=== PATIENT | female | born 1950 | race Native Hawaiian/Other Pacific Islander ===

== ENCOUNTER 2017-08-09 09:40 | Inpatient (IN) | payer BC, MEDICARE ==
[2017-08-09] MEDS ORDERED: Sodium Chloride 0.9% 1,000 ML IV ONE (10:27)
--- NOTE | 2017-08-09 10:35 | C.PDOC ---
History Of Present Illness 66 year old female referred to the ED by Dr. Rosas for admission for abscess I&D. Patient reports abscess to the left arm, increasing in size over the past week. Was taking Keflex but 2 days ago was advised by Alison to stop. Patient has been NPO since last night. No fever or discharge. Time Seen by Provider: 08/09/17 10:08 Chief Complaint (Nursing): Abnormal Skin Integrity History Per: Patient History/Exam Limitations: no limitations Onset/Duration Of Symptoms: Days Current Symptoms Are (Timing): Still Present Past Medical History Reviewed: Historical Data, Nursing Documentation, Vital Signs Vital Signs: Last Vital Signs Temp 98.2 F 08/11/17 04:38 Pulse 64 08/11/17 04:38 Resp 20 08/11/17 04:38 BP 109/63 08/11/17 04:38 Pulse Ox 95 08/11/17 04:38 - Medical History PMH: Diabetes Family History: States: No Known Family Hx - Social History Hx Tobacco Use: No Hx Alcohol Use: No Hx Substance Use: No - Immunization History Hx Tetanus Toxoid Vaccination: No Hx Influenza Vaccination: No Hx Pneumococcal Vaccination: No Review Of Systems Constitutional: Negative for: Fever, Chills Skin: Positive for: Other (abscess to left arm) Physical Exam - Physical Exam Appears: No Acute Distress Skin: Warm, Dry, Other (Abscess to left arm with surrounding erythema, no discharge) Head: Atraumatic, Normacephalic Eye(s): bilateral: Normal Inspection, PERRL, EOMI Oral Mucosa: Moist Neck: Normal, Normal ROM Chest: Symmetrical Cardiovascular: Rhythm Regular, No Murmur Respiratory: Normal Breath Sounds, No Rales, No Rhonchi, No Wheezing Gastrointestinal/Abdominal: Soft, No Tenderness, No Distention Extremity: Bilateral: Atraumatic, Normal ROM Pulses: Left Radial: Normal, Right Radial: Normal Neurological/Psych: Oriented x3, Normal Speech Gait: Steady ED Course And Treatment - Laboratory Results Result Diagrams: 08/10/17 07:32 08/11/17 06:05 ECG: Interpreted By Me, Viewed By Me ECG Rhythm: Sinus Rhythm ECG Interpretation: Normal Rate From EC O2 Sat by Pulse Oximetry: 98 (RA) Pulse Ox Interpretation: Normal Medical Decision Making Medical Decision Making: Initial Impression: Abscess to left arm Case discussed with Dr. Rosas, patient will be admitted to the OR for abscess I&D Progress: Ordered blood work and EKG. Patient started on IV fluids and Ancef Disposition Counseled Patient/Family Regarding: Studies Performed, Diagnosis - Disposition Disposition: HOSPITALIZED Disposition Time: 11:30 Condition: STABLE - POA Present On Arrival: Poor Glycemic Control - Clinical Impression Clinical Impression: Abscess - Scribe Statement The provider has reviewed the documentation as recorded by the Maria Luisa Hermosillo Provider Attestation: All medical record entries made by the Maria Luisa were at my direction and personally dictated by me. I have reviewed the chart and agree that the record accurately reflects my personal performance of the history, physical exam, medical decision making, and the department course for this patient. I have also personally directed, reviewed, and agree with the discharge instructions and disposition.
[2017-08-09] MEDS ORDERED: ceFAZolin 1 gm FROZEN Premix 1 GM/50 ML ML IVPB ONE (10:49)
[2017-08-09 11:11] LABS: BASO # 0.1 K/uL (0.0-0.2); BASO % 0.9 % (0.0-2.0); EOS # 0.2 K/uL (0.0-0.7); EOS % 2.9 % (0.0-4.0); HEMOGLOBIN 15.1 g/dL (11.0-16.0); LYMPH # 1.9 K/uL (1.0-4.3); LYMPH % 29.4 % (20.0-40.0); MEAN CELL VOLUME 93.7 fL (81.0-99.0); MEAN CORPUSCULAR HEMOGLOBIN 32.4 pg (27.0-31.0); MEAN CORPUSCULAR HGB CONC 34.6 g/dL (33.0-37.0); MEAN PLATELET VOLUME 9.7 fL (7.2-11.7); MONO # 0.4 K/uL (0.0-0.8); MONO % 5.9 % (0.0-10.0); NEUT # 3.9 K/uL (1.8-7.0); NEUT % 60.9 % (50.0-75.0); NRBC % 0.1 % (0.0-2.0); RBC 4.66 Mil/uL (3.80-5.20); RED CELL DISTRIBUTION WIDTH 12.9 % (11.5-14.5); WHITE BLOOD COUNT 6.4 K/uL (4.8-10.8)
[2017-08-09 11:12] LABS: SQUAMOUS EPITHIAL < 1 /hpf (0-5); URINE BILIRUBIN NEGATIVE (NEGATIVE); URINE BLOOD NEGATIVE (NEGATIVE); URINE CLARITY Clear (Clear); URINE COLOR Yellow (YELLOW); URINE GLUCOSE (UA) NORMAL (Normal); URINE LEUKOCYTE ESTERASE NEG Leu/uL (Negative); URINE PROTEIN NEGATIVE (NEGATIVE); URINE UROBILINOGEN NORMAL mg/dL (0.2-1.0)
[2017-08-09 11:19] LABS: INR 0.9; PROTHROMBIN TIME 10.4 SECONDS (9.7-12.2)
[2017-08-09 11:26] LABS: ALB/GLOB RATIO 1.1 (1.0-2.1); ALBUMIN 4.5 g/dL (3.5-5.0); ALT/SGPT 46 U/L (9-52); AST/SGOT 39 U/L (14-36); BLOOD UREA NITROGEN 11 mg/dL (7-17); CALCIUM 9.6 mg/dl (8.6-10.4); GFR AFRICAN-AMERICAN > 60; GFR NON-AFRICAN AMERICAN > 60
[2017-08-09] MEDS ORDERED: ceFAZolin 1 gm in NS 1 GM/100 ML BAG IVPB ONE (15:58)
[2017-08-09] MEDS ORDERED: Lidocaine Hydrochloride 5 ML INJ ONE (15:58)
[2017-08-09] MEDS ORDERED: Bupivacaine HCl 0.25% PF (30 ml) Inj ONE (15:59)
[2017-08-09] MEDS ORDERED: Propofol 10 mg/ml Inj (20 ML) ONE (16:04)
[2017-08-09] MEDS ORDERED: Oxycodone/Acetaminophen 5/325 mg Tab PO PRN (16:45)
[2017-08-09] MEDS ORDERED: HYDROmorphone 0.5 mg/0.5 ml ISec IVP PRN (16:47)
--- NOTE | 2017-08-09 19:03 | CP.PCM.HP ---
History of Present Illness - History of Present Illness History of Present Illness: 66 y,o, male with PMH NIDDM2 Cholesterol admitted for ID left arm and IV antibiotic Patient reports boil in left arm for more than a week, she thinks its drying , she is preparing to go to [facility] and stopped by in the clinic, patient was told she has abscess and may need I&D, patient started on antibiotic and immediately saw consulted a surgeon, and went for I& D today- and needed IV antibiotic Patient isaac fever, she repports left arm pain where the boil is, but is tolerable , she is able to use her extremeties. PMH NIDDM2 Cholesterol Meds statin Acei Metformin Surgery cholecystectomy Present on Admission - Present on Admission Any Indicators Present on Admission: No History of DVT/PE: No History of Uncontrolled Diabetes: No Urinary Catheter: No Decubitus Ulcer Present: No Review of Systems - Constitutional Constitutional: absent: Anorexia, Chills, Fatigue, Lethargy - EENT Eyes: absent: Other Visual Disturbances Nose/Mouth/Throat: absent: Epistaxis, Nasal Congestion, Sore Throat - Breasts Breasts: absent: Mass, Pain - Cardiovascular Cardiovascular: absent: Chest Pain, Dyspnea, Orthopnea, Rapid Heart Rate, Syncope - Respiratory Respiratory: absent: Dyspnea, Wheezing - Gastrointestinal Gastrointestinal: absent: Abdominal Pain, Diarrhea, Vomiting - Genitourinary Genitourinary: absent: Difficulty Urinating, Urinary Frequency - Menstruation Menstruation: Post Menopausal - Musculoskeletal Musculoskeletal: Other. absent: Abnormal Gait, Deformity, Limited Range of Motion - Integumentary Integumentary: Other (boil with surrounding redness left arm- went for I&D) - Psychiatric Psychiatric: absent: Abnormal Sleep Pattern, Behavioral Changes, Visual Hallucinations - Endocrine Endocrine: absent: Palpitations, Polydipsia, Polyphagia - Hematologic/Lymphatic Hematologic: absent: Easy Bleeding, Easy Bruising Past Patient History - Past Medical History & Family History Past Medical History?: Yes - Past Social History Smoking Status: Never Smoked Chewing Tobacco Use: No Cigar Use: No Alcohol: Social Home Situation {Lives}: With Family - CARDIAC Hx Cardiac Disorders: No - ENDOCRINE/METABOLIC Hx Endocrine Disorders: Yes Hx Diabetes Mellitus Type 2: Yes - PSYCHIATRIC Hx Substance Use: No - ANESTHESIA Hx Anesthesia: Yes Hx Anesthesia Reactions: No Hx Malignant Hyperthermia: No Meds Allergies/Adverse Reactions: Allergies Allergy/AdvReac Type Severity Reaction Status Date / Time No Known Allergies Allergy Verified 08/09/17 10:27 Physical Exam - Constitutional Appears: Non-toxic, No Acute Distress - Head Exam Head Exam: ATRAUMATIC, NORMOCEPHALIC - Eye Exam Eye Exam: Normal appearance - ENT Exam ENT Exam: Mucous Membranes Moist - Neck Exam Neck exam: Positive for: Full Rom. Negative for: Meningismus, Tenderness - Respiratory Exam Respiratory Exam: Clear to Auscultation Bilateral, NORMAL BREATHING PATTERN - Cardiovascular Exam Cardiovascular Exam: REGULAR RHYTHM - GI/Abdominal Exam GI & Abdominal Exam: Normal Bowel Sounds, Soft. absent: Tenderness - Extremities Exam Extremities exam: Positive for: full ROM (left arm bandaged post I&D today ), pedal pulses present. Negative for: joint swelling, pedal edema - Back Exam Back exam: FULL ROM. absent: rash noted - Neurological Exam Neurological exam: Alert, Normal Gait, Oriented x3 - Psychiatric Exam Psychiatric exam: Normal Affect, Normal Mood - Skin Skin Exam: Abrasion, Intact (other than the surgical site) Results - Vital Signs Recent Vital Signs: Last Vital Signs Temp 97.9 F 08/09/17 18:12 Pulse 77 08/09/17 18:12 Resp 20 08/09/17 18:12 BP 125/73 08/09/17 18:12 Pulse Ox 99 08/09/17 18:12 - Labs Result Diagrams: 08/10/17 07:32 08/10/17 07:32 Labs: Laboratory Results - last 24 hr 08/09/17 08/09/17 08/09/17 10:23 11:02 11:02 WBC 6.4 RBC 4.66 Hgb 15.1 Hct 43.7 MCV 93.7 MCH 32.4 H MCHC 34.6 RDW 12.9 Plt Count 220 MPV 9.7 Neut % (Auto) 60.9 Lymph % (Auto) 29.4 Jay % (Auto) 5.9 Eos % (Auto) 2.9 Baso % (Auto) 0.9 Neut # (Auto) 3.9 Lymph # (Auto) 1.9 Jay # (Auto) 0.4 Eos # (Auto) 0.2 Baso # (Auto) 0.1 PT 10.4 INR 0.9 APTT 36 H Sodium Potassium Chloride Carbon Dioxide Anion Gap BUN Creatinine Est GFR ( Amer) Est GFR (Non-Af Amer) POC Glucose (mg/dL) 100 Random Glucose Calcium Total Bilirubin AST ALT Alkaline Phosphatase Total Protein Albumin Globulin Albumin/Globulin Ratio Urine Color Urine Clarity Urine pH Ur Specific [place] Urine Protein Urine Glucose (UA) Urine Ketones Urine Blood Urine Nitrate Urine Bilirubin Urine Urobilinogen Ur Leukocyte Esterase Urine WBC (Auto) Urine RBC (Auto) Ur Squamous Epith Cells Blood Type Antibody Screen 08/09/17 08/09/17 08/09/17 11:02 11:02 11:02 WBC RBC Hgb Hct MCV MCH MCHC RDW Plt Count MPV Neut % (Auto) Lymph % (Auto) Jay % (Auto) Eos % (Auto) Baso % (Auto) Neut # (Auto) Lymph # (Auto) Jay # (Auto) Eos # (Auto) Baso # (Auto) PT INR APTT Sodium 141 Potassium 4.1 Chloride 102 Carbon Dioxide 26 Anion Gap 18 BUN 11 Creatinine 0.6 L Est GFR ( Amer) > 60 Est GFR (Non-Af Amer) > 60 POC Glucose (mg/dL) Random Glucose 106 H Calcium 9.6 Total Bilirubin 0.7 AST 39 H ALT 46 Alkaline Phosphatase 93 Total Protein 8.4 H Albumin 4.5 Globulin 3.9 Albumin/Globulin Ratio 1.1 Urine Color Yellow Urine Clarity Clear Urine pH 6.0 Ur Specific [place] 1.019 Urine Protein Negative Urine Glucose (UA) Normal Urine Ketones Negative Urine Blood Negative Urine Nitrate Negative Urine Bilirubin Negative Urine Urobilinogen Normal Ur Leukocyte Esterase Neg Urine WBC (Auto) 1 Urine RBC (Auto) 1 Ur Squamous Epith Cells < 1 Blood Type A POSITIVE Antibody Screen Negative 08/09/17 17:06 WBC RBC Hgb Hct MCV MCH MCHC RDW Plt Count MPV Neut % (Auto) Lymph % (Auto) Jay % (Auto) Eos % (Auto) Baso % (Auto) Neut # (Auto) Lymph # (Auto) Jay # (Auto) Eos # (Auto) Baso # (Auto) PT INR APTT Sodium Potassium Chloride Carbon Dioxide Anion Gap BUN Creatinine Est GFR ( Amer) Est GFR (Non-Af Amer) POC Glucose (mg/dL) 93 Random Glucose Calcium Total Bilirubin AST ALT Alkaline Phosphatase Total Protein Albumin Globulin Albumin/Globulin Ratio Urine Color Urine Clarity Urine pH Ur Specific [place] Urine Protein Urine Glucose (UA) Urine Ketones Urine Blood Urine Nitrate Urine Bilirubin Urine Urobilinogen Ur Leukocyte Esterase Urine WBC (Auto) Urine RBC (Auto) Ur Squamous Epith Cells Blood Type Antibody Screen Assessment & Plan - Assessment and Plan (Free Text) Assessment: Patient with NIDDM2 controlled, patient is NPO- for second debridement- will hold DM meds has no hypertension but is covered with ACEI due to DM- will hold for now Statin- will start when feeding Admitted for abscess ,left arm, I & D and antibiotic currently post op- post op pain, no fever n0 other complaints,on antibiotic, and will have another I&D in am currently stable - Date & Time Date: 08/09/17 Time: 21:00
[2017-08-09] MEDS: Dextrose 5%/0.45% NS 1,000 ML IV SCH (19:06)
[2017-08-09] MEDS: Vancomycin 1 gm/NS 200 ml 1 GM/200 ML BAG IVPB SCH (19:06)
--- NOTE | 2017-08-09 19:37 | CP.PCM.CON ---
History of Present Illness - History of Present Illness History of Present Illness: INFECTIOUS DISEASE CONSULT; HPI;66-year-old Citizen Of [place] female with history of NIDDM, hypercholesterolemia, was admitted 08/09/17 for left upper arm cellulitis and abscess for about a week for drainage of the abscess and IV antibiotics. Patient states this is her second episode of developing pustular rash and abscess. Patient was seen and started on antibiotics and I & D was done on 08/09/17. Patient was given a dose of Ancef 1 g and started on IV vancomycin by surgeon DR. ADAMSON in OR. INFECTIOUS DISEASE CONSULT REQUESTED BY DR. ADAMSON FOR iv ANTIBIOTICS. Patient reports pain in the left upper arm POSTOPERATIVE SITE but is able to tolerate with analgesics. Patient denies any fever but does complain of some chills and not feeling well. PATIENT DENIES ANY RECENT TRAVEL OR CONTACT WITH ANY SICK PATIENT OR PATIENT WITH AN ABNORMAL RASH. PMH; NIDDM, HYPERCHOLESTEROLEMIA. PSH; CHOLECYSTECTOMY. ALLERGIES; NKA FAMILY HISTORY; UNREMARKABLE. MEDS; REVIEWED. Review of Systems - Constitutional Constitutional: Chills, Fatigue. absent: Fever, Headache - EENT Eyes: absent: Change in Vision Nose/Mouth/Throat: absent: Mouth Lesions, Mouth Pain - Cardiovascular Cardiovascular: absent: Chest Pain, Dyspnea, Palpitations, Pedal Edema - Respiratory Respiratory: absent: Cough, Hemoptysis - Gastrointestinal Gastrointestinal: absent: Abdominal Pain, Diarrhea, Nausea, Vomiting - Genitourinary Genitourinary: As Per HPI. absent: Freq UTI - Reproductive: Female Reproductive:Female: Post Menopausal - Integumentary Integumentary: Skin Ulcer (LEFT UPPER ARM BOIL AND CELLULITIS S/P I AND D. POSTOPERATIVE ) - Neurological Neurological: absent: Headaches - Hematologic/Lymphatic Hematologic: As Per HPI. absent: Easy Bleeding, Easy Bruising, Lymphadenopathy Past Patient History - Past Medical History & Family History Past Medical History?: Yes - Past Social History Smoking Status: Never Smoked Chewing Tobacco Use: No Cigar Use: No Alcohol: Social Home Situation {Lives}: With Family - CARDIAC Hx Cardiac Disorders: No - ENDOCRINE/METABOLIC Hx Endocrine Disorders: Yes Hx Diabetes Mellitus Type 2: Yes - PSYCHIATRIC Hx Substance Use: No - ANESTHESIA Hx Anesthesia: Yes Hx Anesthesia Reactions: No Hx Malignant Hyperthermia: No Meds Allergies/Adverse Reactions: Allergies Allergy/AdvReac Type Severity Reaction Status Date / Time No Known Allergies Allergy Verified 08/09/17 10:27 - Medications Medications: Current Medications Docusate Sodium (Colace) 100 mg PO BID [facility] Sodium Chloride (Sodium Chloride 0.9%) 1,000 mls @ 100 mls/hr IV .Q10H ONE Stop: 08/09/17 20:26 Last Admin: 08/09/17 10:53 Dose: 100 mls/hr Dextrose/Sodium Chloride (Dextrose 5%/0.45% Ns 1000 Ml) 1,000 mls @ 80 mls/hr IV .[id number] [facility] Last Admin: 08/09/17 19:06 Dose: 80 mls/hr Vancomycin/Sodium Chloride (Vancomycin 1 Gm/Ns 200 Ml) 1 gm in 200 mls @ 166.6 mls/hr IVPB Q12H [facility] PRN Reason: Protocol Stop: 08/14/17 18:01 Last Admin: 08/09/17 19:06 Dose: 166.6 mls/hr Ondansetron HCl (Zofran Inj) 4 mg IVP Q6 PRN PRN Reason: Nausea/Vomiting Oxycodone/Acetaminophen (Percocet 5/325 Mg Tab) 2 tab PO Q4H PRN PRN Reason: pain Stop: 08/12/17 16:46 Pantoprazole Sodium (Protonix Inj) 40 mg IVP DAILY [facility] Rosuvastatin Calcium (Crestor) 10 mg PO HS [facility] Physical Exam - Head Exam Head Exam: NORMAL INSPECTION - Eye Exam Eye Exam: EOMI - ENT Exam ENT Exam: Normal Oropharynx - Neck Exam Neck exam: Positive for: Normal Inspection - Respiratory Exam Respiratory Exam: Clear to Auscultation Bilateral - Cardiovascular Exam Cardiovascular Exam: REGULAR RHYTHM, +S1, +S2. absent: Systolic Murmur - GI/Abdominal Exam GI & Abdominal Exam: Soft. absent: Mass, Organomegaly - Extremities Exam Extremities exam: Positive for: pedal pulses present. Negative for: calf tenderness, pedal edema - Neurological Exam Neurological exam: Alert, CN II-XII Intact, Oriented x3, Reflexes Normal - Psychiatric Exam Psychiatric exam: Normal Mood - Skin Skin Exam: Normal Color, Warm Results - Vital Signs Recent Vital Signs: Last Vital Signs Temp 97.9 F 08/09/17 18:12 Pulse 77 08/09/17 18:12 Resp 20 08/09/17 18:12 BP 125/73 08/09/17 18:12 Pulse Ox 99 08/09/17 18:12 - Labs Result Diagrams: 08/10/17 07:32 08/10/17 07:32 Labs: Laboratory Results - last 24 hr 08/09/17 08/09/17 08/09/17 10:23 11:02 11:02 WBC 6.4 RBC 4.66 Hgb 15.1 Hct 43.7 MCV 93.7 MCH 32.4 H MCHC 34.6 RDW 12.9 Plt Count 220 MPV 9.7 Neut % (Auto) 60.9 Lymph % (Auto) 29.4 [place] % (Auto) 5.9 Eos % (Auto) 2.9 Baso % (Auto) 0.9 Neut # (Auto) 3.9 Lymph # (Auto) 1.9 [place] # (Auto) 0.4 Eos # (Auto) 0.2 Baso # (Auto) 0.1 PT 10.4 INR 0.9 APTT 36 H Sodium Potassium Chloride Carbon Dioxide Anion Gap BUN Creatinine Est GFR ( Amer) Est GFR (Non-Af Amer) POC Glucose (mg/dL) 100 Random Glucose Calcium Total Bilirubin AST ALT Alkaline Phosphatase Total Protein Albumin Globulin Albumin/Globulin Ratio Urine Color Urine Clarity Urine pH Ur Specific [place] Urine Protein Urine Glucose (UA) Urine Ketones Urine Blood Urine Nitrate Urine Bilirubin Urine Urobilinogen Ur Leukocyte Esterase Urine WBC (Auto) Urine RBC (Auto) Ur Squamous Epith Cells Blood Type Antibody Screen 08/09/17 08/09/17 08/09/17 11:02 11:02 11:02 WBC RBC Hgb Hct MCV MCH MCHC RDW Plt Count MPV Neut % (Auto) Lymph % (Auto) [place] % (Auto) Eos % (Auto) Baso % (Auto) Neut # (Auto) Lymph # (Auto) [place] # (Auto) Eos # (Auto) Baso # (Auto) PT INR APTT Sodium 141 Potassium 4.1 Chloride 102 Carbon Dioxide 26 Anion Gap 18 BUN 11 Creatinine 0.6 L Est GFR ( Amer) > 60 Est GFR (Non-Af Amer) > 60 POC Glucose (mg/dL) Random Glucose 106 H Calcium 9.6 Total Bilirubin 0.7 AST 39 H ALT 46 Alkaline Phosphatase 93 Total Protein 8.4 H Albumin 4.5 Globulin 3.9 Albumin/Globulin Ratio 1.1 Urine Color Yellow Urine Clarity Clear Urine pH 6.0 Ur Specific [place] 1.019 Urine Protein Negative Urine Glucose (UA) Normal Urine Ketones Negative Urine Blood Negative Urine Nitrate Negative Urine Bilirubin Negative Urine Urobilinogen Normal Ur Leukocyte Esterase Neg Urine WBC (Auto) 1 Urine RBC (Auto) 1 Ur Squamous Epith Cells < 1 Blood Type A POSITIVE Antibody Screen Negative 08/09/17 17:06 WBC RBC Hgb Hct MCV MCH MCHC RDW Plt Count MPV Neut % (Auto) Lymph % (Auto) [place] % (Auto) Eos % (Auto) Baso % (Auto) Neut # (Auto) Lymph # (Auto) [place] # (Auto) Eos # (Auto) Baso # (Auto) PT INR APTT Sodium Potassium Chloride Carbon Dioxide Anion Gap BUN Creatinine Est GFR ( Amer) Est GFR (Non-Af Amer) POC Glucose (mg/dL) 93 Random Glucose Calcium Total Bilirubin AST ALT Alkaline Phosphatase Total Protein Albumin Globulin Albumin/Globulin Ratio Urine Color Urine Clarity Urine pH Ur Specific [place] Urine Protein Urine Glucose (UA) Urine Ketones Urine Blood Urine Nitrate Urine Bilirubin Urine Urobilinogen Ur Leukocyte Esterase Urine WBC (Auto) Urine RBC (Auto) Ur Squamous Epith Cells Blood Type Antibody Screen Assessment & Plan - Assessment and Plan (Free Text) Assessment: Asssessment : CHUY - CELLULITIS / ABSCESS R/O MRSA INFECTION R/O SEPTCEMIA. NIDDM-2. HYPERCHOLESTROLEMIA HTN. HX OF CHOLECYSTECTOMY. Plan : PANCULTURE- ADD IV ROCEPHIN 1GM IVPB Q 24HRLY 08/09/17 CONTINUE IV VANCOMYCIN 1GM IVPB Q 12HRLY. 08/09/17. F/U VANCO TROUGH LEVEL IN AM AND KEEP BETWEEN 10- 20. F/U CULTURES TO ADJUST ABX. LWC PER SURGERY.
--- NOTE | 2017-08-10 03:42 | OP ---
PROCEDURE DATE: 08/09/2017 PREOPERATIVE DIAGNOSIS: Infected mass of the left shoulder. POSTOPERATIVE DIAGNOSIS: Infected mass of the left shoulder. PROCEDURE PERFORMED: Wide deep excision, 5 cm infected mass of the left shoulder with radical resection and drainage of underlying abscess. SURGEON: Bob Rosas MD ANESTHESIA: General. BLOOD LOSS: 30 mL. POSTOPERATIVE CONDITION Stable. INDICATIONS FOR SURGERY This is a 66-year-old female with a history of an infected mass of her shoulder. She is admitted to the emergency room today, taken to the OR for incision and drainage. DESCRIPTION OF PROCEDURE: The patient was taken to the operating room, general anesthesia administered. arm and shoulder were prepped and draped. A generous elliptical incision was made surrounding the mass. It was dissected free into the fascia and completely removed. Underlying pus was drained and cultured. The wound was vigorously irrigated with saline. Bleeding was controlled using the Bovie. A larger bleeding blood vessel was repaired. A partial tissue flap closure was performed by mobilizing a full-thickness flap making incisions and utilizing multiple layers of Monocryl. A central port measured approximately 20 sq cm. The central portion of wound was packed open with saline gauze. The patient tolerated the procedure well, and returned to recovery room in stable condition. Bob Rosas MD
[2017-08-10] MEDS: Dextrose 5%/0.45% NS 1,000 ML IV SCH ×3 (06:10→20:01)
[2017-08-10] MEDS: Vancomycin 1 gm/NS 200 ml 1 GM/200 ML BAG IVPB SCH ×2 (06:30→20:01)
[2017-08-10 08:05] LABS: ALBUMIN 3.5 g/dL (3.5-5.0); ALT/SGPT 100 U/L (9-52); AST/SGOT 91 U/L (14-36); BILIRUBIN,DIRECT 0.3 mg/dL (0.0-0.4)
[2017-08-10 08:12] LABS: BASO % 0.6 % (0.0-2.0); EOS # 0.3 K/uL (0.0-0.7); EOS % 5.1 % (0.0-4.0); HEMOGLOBIN 13.5 g/dL (11.0-16.0); LYMPH % 36.5 % (20.0-40.0); MEAN CELL VOLUME 92.9 fL (81.0-99.0); MEAN CORPUSCULAR HEMOGLOBIN 32.6 pg (27.0-31.0); MEAN CORPUSCULAR HGB CONC 35.1 g/dL (33.0-37.0); MEAN PLATELET VOLUME 9.4 fL (7.2-11.7); MONO # 0.3 K/uL (0.0-0.8); MONO % 5.7 % (0.0-10.0); NEUT # 2.9 K/uL (1.8-7.0); NEUT % 52.1 % (50.0-75.0); NRBC % 0.1 % (0.0-2.0); RBC 4.15 Mil/uL (3.80-5.20); RED CELL DISTRIBUTION WIDTH 12.8 % (11.5-14.5); WHITE BLOOD COUNT 5.6 K/uL (4.8-10.8)
[2017-08-10 08:35] LABS: BLOOD UREA NITROGEN 8 mg/dL (7-17); GFR AFRICAN-AMERICAN > 60; GFR NON-AFRICAN AMERICAN > 60
[2017-08-10] MEDS ORDERED: cefTRIAXone IV 1 gm in Dextros 50 ML IVPB SCH (10:00)
[2017-08-10] MEDS ORDERED: Morphine 4 MG/ML VIAL IVP PRN (14:17)
[2017-08-10] MEDS ORDERED: Propofol 10 mg/ml Inj (20 ML) ONE (14:43)
[2017-08-10] MEDS ORDERED: Midazolam 2 MG/2 ML VIAL ONE (14:43)
[2017-08-10] MEDS ORDERED: Bacitracin Ointment 30 GM TUBE ONE (15:16)
--- NOTE | 2017-08-10 15:30 | CP.PCM.PN ---
Subjective - Date & Time of Evaluation Date of Evaluation: 08/10/17 Time of Evaluation: 00:00 - Subjective Subjective: Patient seen , NPO, will go to [facility] abscess drainage- patient has no complaints other than pain in the are in eft arm, been afebrile is ambulatory has regular urination and BM is currently on IV antibiotic aware of plan Objective - Vital Signs/Intake and Output Vital Signs (last 24 hours): Temp Pulse Resp BP Pulse Ox 98.3 F 71 18 124/70 96 08/10/17 12:59 08/10/17 12:59 08/10/17 12:59 08/10/17 12:59 08/10/17 12:59 Intake and Output: 08/10/17 08/10/17 06:59 18:59 Intake Total 1000 Balance 1000 - Medications Medications: Current Medications Docusate Sodium (Colace) 100 mg PO BID [facility] Last Admin: 08/10/17 09:31 Dose: Not Given Dextrose/Sodium Chloride (Dextrose 5%/0.45% Ns 1000 Ml) 1,000 mls @ 80 mls/hr IV .[id number] [facility] Last Admin: 08/10/17 06:10 Dose: Not Given Vancomycin/Sodium Chloride (Vancomycin 1 Gm/Ns 200 Ml) 1 gm in 200 mls @ 166.6 mls/hr IVPB Q12H [facility] PRN Reason: Protocol Stop: 08/14/17 18:01 Last Admin: 08/10/17 06:30 Dose: 166.6 mls/hr Ceftriaxone Sodium (Rocephin Iv 1 Gm Duplex) 50 mls @ 100 mls/hr IVPB DAILY [facility] PRN Reason: Protocol Last Admin: 08/10/17 09:28 Dose: 100 mls/hr Morphine Sulfate (Morphine) 2 mg IVP Q10M PRN PRN Reason: Pain, moderate (4-7) Stop: 08/10/17 16:18 Ondansetron HCl (Zofran Inj) 4 mg IVP Q6 PRN PRN Reason: Nausea/Vomiting Oxycodone/Acetaminophen (Percocet 5/325 Mg Tab) 2 tab PO Q4H PRN PRN Reason: pain Stop: 08/12/17 16:46 Pantoprazole Sodium (Protonix Inj) 40 mg IVP DAILY [facility] Last Admin: 08/10/17 09:28 Dose: 40 mg Rosuvastatin Calcium (Crestor) 10 mg PO HS [facility] Last Admin: 08/09/17 21:54 Dose: Not Given - Labs Labs: 08/10/17 07:32 08/10/17 07:32 PT 10.4 SECONDS (9.7-12.2) 08/09/17 11:02 INR 0.9 08/09/17 11:02 APTT 36 SECONDS (21-34) H 08/09/17 11:02 - Constitutional Appears: Well, No Acute Distress - Head Exam Head Exam: ATRAUMATIC, NORMOCEPHALIC - Eye Exam Eye Exam: Normal appearance. absent: Nystagmus - ENT Exam ENT Exam: Mucous Membranes Moist - Neck Exam Neck Exam: Full ROM. absent: Tenderness - Respiratory Exam Respiratory Exam: Clear to Ausculation Bilateral, NORMAL BREATHING PATTERN - Cardiovascular Exam Cardiovascular Exam: REGULAR RHYTHM - GI/Abdominal Exam GI & Abdominal Exam: Soft, Normal Bowel Sounds - Extremities Exam Extremities Exam: Full ROM, Normal Inspection, Pedal Edema. absent: Joint Swelling - Back Exam Back Exam: Full ROM. absent: rash noted - Neurological Exam Neurological Exam: Alert, Awake, Normal Gait, Oriented x3 - Psychiatric Exam Psychiatric exam: Normal Affect, Normal Mood - Skin Skin Exam: Intact, Normal Color Assessment and Plan - Assessment and Plan (Free Text) Assessment: Patient with controlled NIDDM2 off medication due to current procedure - NPO- with good sugar level no hypertension but sholud be on ACEI and statin due to presence of diabetes - - all meds on hold a s above admitted for left arm abscess drainage and antibiotic , currently no complaints other than the post op pain- has scheduled second I&D today patient aware of condition and plan
[2017-08-10 17:23] VITALS: RESP 20
--- NOTE | 2017-08-10 18:58 | CP.PCM.PN ---
Subjective - Date & Time of Evaluation Date of Evaluation: 08/10/17 Time of Evaluation: 18:58 - Subjective Subjective: CHIEF COMPLAINTS TODAY : seen in recovery this noon awake, vss s/p 2nd debridement CHUY. ROS. HEENT : N. Resp : No SOB wheezing, cough Cardio : No CP, PND orthopnea GI : No abd. 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 Musculoskel : N Ext. : Pedal pulses intact, no edema or calf pain CHUY IN DRESSING . Derm : N Psych : N. PE. Pt. is alert awake in no distress. V.S As noted in the chart Head ,ear nose,throat and eyes : Normal. Neck : Supple with normal carotids. Lungs: Clear air entry. Heart : S1 & S2 normal . . No murmur. S4 + Abd : Soft non tender with normal bowel sounds. Neuro : Moves all ext. with no localized deficit. Ext : No edema with intact pulses. Neg. calf tenderness. CHUY IN DRESSING C/ D/ I . Derm : No rashes or decubitus ulcer. Radiology/Labs REVIEWED. WOUND CULTURE - P Asssessment : CHUY - CELLULITIS / ABSCESS R/O MRSA INFECTION R/O SEPTCEMIA. NIDDM-2. HYPERCHOLESTROLEMIA HTN. HX OF CHOLECYSTECTOMY. Plan : PANCULTURE-P CONTINUE IV ROCEPHIN 1GM IVPB Q 24HRLY 08/09/17 CONTINUE IV VANCOMYCIN 1GM IVPB Q 12HRLY. 08/09/17. F/U VANCO TROUGH LEVEL IN AM AND KEEP BETWEEN 10- 20. F/U CULTURES TO ADJUST ABX. LWC PER SURGERY. . Objective - Vital Signs/Intake and Output Vital Signs (last 24 hours): Temp Pulse Resp BP Pulse Ox 98.3 F 66 20 136/82 98 08/10/17 17:00 08/10/17 17:00 08/10/17 17:00 08/10/17 17:00 08/10/17 17:00 Intake and Output: 08/10/17 08/10/17 06:59 18:59 Intake Total 1000 680 Balance 1000 680 - Medications Medications: Current Medications Docusate Sodium (Colace) 100 mg PO BID [facility] Last Admin: 08/10/17 09:31 Dose: Not Given Dextrose/Sodium Chloride (Dextrose 5%/0.45% Ns 1000 Ml) 1,000 mls @ 80 mls/hr IV .[id number] [facility] Last Admin: 08/10/17 06:10 Dose: Not Given Vancomycin/Sodium Chloride (Vancomycin 1 Gm/Ns 200 Ml) 1 gm in 200 mls @ 166.6 mls/hr IVPB Q12H [facility] PRN Reason: Protocol Stop: 08/14/17 18:01 Last Admin: 08/10/17 06:30 Dose: 166.6 mls/hr Ceftriaxone Sodium (Rocephin Iv 1 Gm Duplex) 50 mls @ 100 mls/hr IVPB DAILY [facility] PRN Reason: Protocol Last Admin: 08/10/17 09:28 Dose: 100 mls/hr Ondansetron HCl (Zofran Inj) 4 mg IVP Q6 PRN PRN Reason: Nausea/Vomiting Oxycodone/Acetaminophen (Percocet 5/325 Mg Tab) 2 tab PO Q4H PRN PRN Reason: pain Stop: 08/12/17 16:46 Pantoprazole Sodium (Protonix Inj) 40 mg IVP DAILY [facility] Last Admin: 08/10/17 09:28 Dose: 40 mg Rosuvastatin Calcium (Crestor) 10 mg PO HS [facility] Last Admin: 08/09/17 21:54 Dose: Not Given - Labs Labs: 08/10/17 07:32 08/10/17 07:32 PT 10.4 SECONDS (9.7-12.2) 08/09/17 11:02 INR 0.9 08/09/17 11:02 APTT 36 SECONDS (21-34) H 08/09/17 11:02
--- NOTE | 2017-08-11 02:25 | OP ---
PROCEDURE DATE: 08/10/2017 PREOPERATIVE DIAGNOSIS: Infected mass of the left shoulder. POSTOPERATIVE DIAGNOSIS: Infected mass of the left shoulder. PROCEDURE PERFORMED: Redrainage of left shoulder abscess with debridement and adjacent tissue transfer closure. SURGEON: Bob Rosas MD ANESTHESIA: General. BLOOD LOSS: 30 mL. POSTOPERATIVE CONDITION: Stable. INDICATIONS: The patient was taken back to the operating room with a stage procedure. undergo wide deep excision of infected mass and drainage of an abscess yesterday. Today, she is taken back for debridement and possible secondary closure. DESCRIPTION OF PROCEDURE: The patient was taken to the operating room, general anesthesia was administered, and the left arm and shoulder were prepped and draped. Previous packing had been removed. The wound was aggressively debrided and pulse irrigation was performed. Bleeding blood vessel was repaired. Advancement flap closure was performed by raising a full-thickness flap making counter incisions and using multiple layers of subcuticular Monocryl, 20 sq cm was the area of the closure. The wound was dressed sterilely. The patient tolerated the procedure well. Returned to recovery room in stable condition. Bob Rosas MD
[2017-08-11] MEDS: Dextrose 5%/0.45% NS 1,000 ML IV SCH (06:22)
[2017-08-11 06:37] LABS: ALB/GLOB RATIO 1.1 (1.0-2.1); ALBUMIN 3.3 g/dL (3.5-5.0); ALT/SGPT 130 U/L (9-52); AST/SGOT 107 U/L (14-36); BILIRUBIN,DIRECT 0.4 mg/dL (0.0-0.4); BLOOD UREA NITROGEN 9 mg/dL (7-17); CALCIUM 8.9 mg/dl (8.6-10.4); GFR AFRICAN-AMERICAN > 60; GFR NON-AFRICAN AMERICAN > 60
[2017-08-11] MEDS: Vancomycin 1 gm/NS 200 ml 1 GM/200 ML BAG IVPB SCH (06:44)
[2017-08-11 07:06] LABS: HEPATITIS B SURFACE AG Negative (NEGATIVE)
[2017-08-11 07:12] LABS: HEPATITIS A IGM NEGATIVE (NEGATIVE); HEPATITIS B CORE AB NEGATIVE (NEGATIVE)
[2017-08-11 07:24] LABS: HEPATITIS C ANTIBODY NEGATIVE (NEGATIVE)
[2017-08-11] MEDS ORDERED: Pantoprazole 40 mg EC Tab PO SCH (10:00)
--- NOTE | 2017-08-11 11:23 | CP.PCM.PN ---
Subjective - Date & Time of Evaluation Date of Evaluation: 08/11/17 Time of Evaluation: 11:23 - Subjective Subjective: CHIEF COMPLAINTS TODAY : AFEBRILE. CHUY DRESSING- c/o postoperative wound site pain. ROS. HEENT : N. Resp : No SOB wheezing, cough Cardio : No CP, PND orthopnea GI : No abd. 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 Musculoskel : N Ext. : Pedal pulses intact, no edema or calf pain CHUY IN DRESSING . Derm : N Psych : N. PE. Pt. is alert awake in no distress. V.S As noted in the chart Head ,ear nose,throat and eyes : Normal. Neck : Supple with normal carotids. Lungs: Clear air entry. Heart : S1 & S2 normal . . No murmur. S4 + Abd : Soft non tender with normal bowel sounds. Neuro : Moves all ext. with no localized deficit. Ext : No edema with intact pulses. Neg. calf tenderness. CHUY IN DRESSING C/ D/ I . Derm : No rashes or decubitus ulcer. Radiology/Labs REVIEWED. blood cultures negative to date. WOUND CULTURE - -no growth for 24 hours. tissue culture- gram-positive cocci. Culture pending. Nasal smear+ve mrsa Vanco trough normal 10.3. Asssessment : CHUY - CELLULITIS / ABSCESS R/O MRSA INFECTION R/O SEPTCEMIA. NIDDM-2. HYPERCHOLESTROLEMIA HTN. HX OF CHOLECYSTECTOMY. Plan : agree with surgery. Patient for discharge today. D/C IV antibiotics Patient given by mouth Duricef 500 mg twice a day for 10 days as per surgery. Bactroban apply locally nares twice a day for 7 days. f/u LFTs as outpatient. f/u cultures next 48-72 hours Local wound care as per surgery. case discussed with the staff. . Objective - Vital Signs/Intake and Output Vital Signs (last 24 hours): Temp Pulse Resp BP Pulse Ox 98.1 F 51 L 20 111/67 95 08/11/17 08:19 08/11/17 08:19 08/11/17 08:19 08/11/17 08:19 08/11/17 08:19 Intake and Output: 08/11/17 08/11/17 06:59 18:59 Intake Total 400 Balance 400 - Medications Medications: Current Medications Docusate Sodium (Colace) 100 mg PO BID [facility] Last Admin: 08/11/17 09:26 Dose: 100 mg Dextrose/Sodium Chloride (Dextrose 5%/0.45% Ns 1000 Ml) 1,000 mls @ 80 mls/hr IV .[id number] [facility] Last Admin: 08/11/17 06:22 Dose: Not Given Vancomycin/Sodium Chloride (Vancomycin 1 Gm/Ns 200 Ml) 1 gm in 200 mls @ 166.6 mls/hr IVPB Q12H [facility] PRN Reason: Protocol Stop: 08/14/17 18:01 Last Admin: 08/11/17 06:44 Dose: 166.6 mls/hr Ceftriaxone Sodium 1 gm/ (Sodium Chloride) 100 mls @ 100 mls/hr IVPB DAILY [facility] PRN Reason: Protocol Last Admin: 08/11/17 09:39 Dose: 100 mls/hr Ondansetron HCl (Zofran Inj) 4 mg IVP Q6 PRN PRN Reason: Nausea/Vomiting Oxycodone/Acetaminophen (Percocet 5/325 Mg Tab) 2 tab PO Q4H PRN PRN Reason: pain Stop: 08/12/17 16:46 Pantoprazole Sodium (Protonix Ec Tab) 40 mg PO DAILY [facility] Last Admin: 08/11/17 09:26 Dose: 40 mg Rosuvastatin Calcium (Crestor) 10 mg PO HS [facility] Last Admin: 08/10/17 22:00 Dose: Not Given - Labs Labs: 08/10/17 07:32 08/11/17 06:05 PT 10.4 SECONDS (9.7-12.2) 08/09/17 11:02 INR 0.9 08/09/17 11:02 APTT 36 SECONDS (21-34) H 08/09/17 11:02
[2017-08-11 11:46] VITALS: BP 129/63; PULSE 62; TEMP 98.3; O2SAT 97
--- NOTE | 2017-08-11 15:19 | CP.PCM.PN ---
Subjective - Date & Time of Evaluation Date of Evaluation: 08/11/17 Time of Evaluation: 08:30 - Subjective Subjective: PATIENT SEEN- HAD SECOND DRAINAGE YESTERDAY - SHE IS ON ANTIBIOTIC WAS SEEN BY ID HAS BEEN CLEARED BY SURGERY TO GO HOME HAS NO OTHER COMPLAINTS SHE CAN MOVE HER ARM AND WANTS TO GO DANCING TOMORROW AWARE OF PLAN Objective - Vital Signs/Intake and Output Vital Signs (last 24 hours): Temp Pulse Resp BP Pulse Ox 98.3 F 62 20 129/63 97 08/11/17 11:19 08/11/17 11:19 08/11/17 11:19 08/11/17 11:19 08/11/17 11:19 Intake and Output: 08/11/17 08/11/17 06:59 18:59 Intake Total 400 650 Balance 400 650 - Labs Labs: 08/10/17 07:32 08/11/17 06:05 PT 10.4 SECONDS (9.7-12.2) 08/09/17 11:02 INR 0.9 08/09/17 11:02 APTT 36 SECONDS (21-34) H 08/09/17 11:02 - Constitutional Appears: Well, No Acute Distress - Head Exam Head Exam: ATRAUMATIC, NORMOCEPHALIC - Eye Exam Eye Exam: Normal appearance Pupil Exam: NORMAL ACCOMODATION - ENT Exam ENT Exam: Mucous Membranes Moist - Neck Exam Neck Exam: Full ROM. absent: Tenderness - Respiratory Exam Respiratory Exam: Clear to Ausculation Bilateral, NORMAL BREATHING PATTERN - Cardiovascular Exam Cardiovascular Exam: REGULAR RHYTHM - GI/Abdominal Exam GI & Abdominal Exam: Soft, Normal Bowel Sounds. absent: Tenderness - Extremities Exam Extremities Exam: Full ROM, Normal Inspection (OTHER THAN BANDAGED LEFT ARM POST DRAINAGE ) - Back Exam Back Exam: Full ROM, NORMAL INSPECTION. absent: CVA tenderness (R), rash noted - Neurological Exam Neurological Exam: Alert, Awake, Normal Gait, Oriented x3 - Psychiatric Exam Psychiatric exam: Normal Affect, Normal Mood - Skin Skin Exam: Intact (OTHER THAN THE LEFT ARM), Normal Color Assessment and Plan - Assessment and Plan (Free Text) Assessment: PATIENT IS POST OP FOR INCISION AND DRAINAGE X 2 OF LEFT ARM ABSCESS- , BEEN ON ANTIBIOTIC, GOOD CONDITON GOOD PROGNOSISNIDDM 2- BEEN NPO- , STARTED ON CLEAR LIQUID AND TO ADVANCE - DISCUSSION OF DM MEDICATION- SHE CAN RESUME WHEN FULLY FEEDING , TO MONITOR FS WILL GO TO [facility] ON MONDAY AND WILL SEE IN THE CLINIC WHEN SHE COMES BACK . SHE WILL HAVE FOLLOW UP WITH SURGEON , CONTINUE ANTIBIOTIC MRSA/NASAL- PRESCRIPTION FOR MUPIROCIN NASAL
--- NOTE | 2017-08-13 21:22 | CARD ---
APPROVED REPORT EKG Measurement Heart [id number] <Conclusion> Normal sinus rhythm Normal ECG
== END 2017-08-11 12:02 | disposition home or self-care (01) | DRG 572 ==
LOC: C.ER 09:40 → C.9S 16:43 → C.6T 17:27
PROVIDERS: ADMIT Surgery; ATTEND Surgery
PROC: 0JBF0ZZ Excision of Left Upper Arm Subcutaneous Tissue and Fascia, Open Approach (ICD-10-PCS; principal; 2017-08-09 20:00)
PROC: 0J9F0ZZ Drainage of Left Upper Arm Subcutaneous Tissue and Fascia, Open Approach (ICD-10-PCS; 2017-08-10)
DX: L02.91 Cutaneous abscess, unspecified (principal); L02.414 Cutaneous abscess of left upper limb; E11.9 Type 2 diabetes mellitus without complications; E78.00 Pure hypercholesterolemia, unspecified; I10 Essential (primary) hypertension; L02.92 Furuncle, unspecified; Z79.84 Long term (current) use of oral hypoglycemic drugs